=== PATIENT | male | born 1990 | race Caucasian/White ===

== ENCOUNTER 2023-12-18 00:52 | Emergency (ER) | payer BC, OTHER ==
[2023-12-18] MEDS: cloNIDine 0.1 MG Tab PO ONE (01:03)
[2023-12-18 01:49] LABS: BASOPHILS ABSOLUTE AUTO 0.03 K/uL (0.00-0.20); BASOPHILS PERCENT AUTO 0.2 % (0.0-2.0); EOSINOPHILS ABSOLUTE AUTO 0.16 K/uL (0.00-0.50); EOSINOPHILS PERCENT AUTO 0.9 % (0.0-5.0); HEMOGLOBIN 14.9 g/dL (13.1-16.8); LYMPHOCYTES ABSOLUTE AUTO 2.06 K/uL (0.50-3.50); LYMPHOCYTES PERCENT AUTO 11.7 % (10.0-50.0); MEAN CORPUSCULAR HEMOGLOBIN 28.3 pg (28.2-33.3); MEAN CORPUSCULAR HGB CONC 33.9 g/dL (31.7-36.0); MEAN CORPUSCULAR VOLUME 83.7 fL (84.0-98.0); MONOCYTES ABSOLUTE AUTO 1.91 K/uL (0.00-1.00); MONOCYTES PERCENT AUTO 10.8 % (2.0-14.0); NEUTROPHILS ABSOLUTE AUTO 13.47 K/uL (1.40-7.00); NEUTROPHILS PERCENT AUTO 76.4 % (45.0-80.0); PLATELET COUNT,PLT 194 K/uL (150-350); RED BLOOD CELL COUNT 5.26 M/uL (4.33-5.41); RED CELL DISTRIBUTION WIDTH 12.9 % (11.2-14.1); WHITE BLOOD CELL COUNT,WBC 17.6 K/uL (4.0-10.2)
[2023-12-18 01:59] LABS: INR 1.1 (0.9-1.1); PROTHROMBIN TIME 10.7 SEC (9.0-11.1)
[2023-12-18 02:02] LABS: ALANINE AMINOTRANSFERASE,ALT 37 U/L (12-78); ALBUMIN 3.6 g/dL (3.4-5.0); ALKALINE PHOSPHATASE 83 IU/L (46-116); ASPARTATE AMNIOTRANSFERASE,AST 22 U/L (15-37); BILIRUBIN TOTAL 0.8 mg/dL (0.2-1.0); BLOOD UREA NITROGEN,BUN 13 mg/dL (7-18); CALCIUM 8.7 mg/dL (8.5-10.1); CARBON DIOXIDE,CO2 28.9 mmol/L (21.0-32.0); CHLORIDE,CL 98 mmol/L (98-107); CREATININE 1.18 mg/dL (0.51-1.17); GLUCOSE RANDOM 121 mg/dL (70-99); POTASSIUM,K 4.5 mmol/L (3.5-5.1); PROTEIN TOTAL,TP 7.8 g/dL (6.4-8.2); SODIUM,NA 135 mmol/L (136-145)
[2023-12-18 02:07] LABS: ANION GAP 12.6 meq/L (7-15); ESTIMATED GFR 83 mL/min (>=60)
[2023-12-18 02:18] VITALS: BP 162/99; PULSE 97
[2023-12-18] MEDS: Amoxicillin 500 MG Cap PO ONE (02:22)
[2023-12-18] MEDS: LORazepam 0.5 MG Tab PO ONE (02:22)
== END 2023-12-18 02:42 | disposition home or self-care (01) ==
LOC: LL.ED 00:52
DX: J02.0 Streptococcal pharyngitis (principal); B96.89 Other specified bacterial agents as the cause of diseases classified elsewhere; F41.9 Anxiety disorder, unspecified; F45.8 Other somatoform disorders; F17.210 Nicotine dependence, cigarettes, uncomplicated; R03.0 Elevated blood-pressure reading, without diagnosis of hypertension
CPT/HCPCS: 36415; 80053; 83605; 85025; 85610; 87651; 99283; A9270; 99284